=== PATIENT | female | born 1930 | race Caucasian/White ===

== ENCOUNTER 2016-09-19 21:01 | Emergency (ER) | payer OTHER ==
--- NOTE | 2016-09-19 21:24 | EDPHY ---
H & P Stated Complaint: rectal bleeding Time Seen by Provider: 09/19/16 21:11 HPI/ROS: CHIEF COMPLAINT: Rectal bleeding HISTORY OF PRESENT ILLNESS: Patient is an 86-year-old healthy female with a history of constipation and hemorrhoids who had a episode of hemorrhoidal bleeding earlier today. She then was at dinner with her friends and when she stood up from the chair at some bleeding through her pants onto the chair. Her friends were concerned and brought her here. She states that she is not concerned. She does not feel lightheaded or dizzy. She denies shortness of breath or chest pain. No weakness. Bleeding has now stopped. the blood was red. She has no abdominal pain. REVIEW OF SYSTEMS: Constitutional: denies: chills, fever, recent illness, recent injury EENTM: denies: blurred vision, double vision, nose congestion Respiratory: denies: cough, shortness of breath Cardiac: denies: chest pain, irregular heart rate, lightheadedness, palpitations Gastrointestinal/Abdominal: See HPI Genitourinary: denies: dysuria, frequency, hematuria, pain Musculoskeletal: denies: joint pain, muscle pain Skin: denies: lesions, rash, jaundice, bruising Neurological: denies: headache, numbness, paresthesia, tingling, dizziness, weakness Hematologic/Lymphatic: denies: blood clots, easy bleeding, easy bruising Immunologic/allergic: denies: HIV/AIDS, transplant EXAM: GENERAL: Well-appearing, well-nourished and in no acute distress. HEAD: Atraumatic, normocephalic. EYES: Pupils equal round and reactive to light, extraocular movements intact, sclera anicteric, conjunctiva are normal. ENT: TMs normal, nares patent, oropharynx clear without exudates. Moist mucous membranes. NECK: Normal range of motion, supple without lymphadenopathy or JVD. LUNGS: Breath sounds clear to auscultation bilaterally and equal. No wheezes rales or rhonchi. HEART: Regular rate and rhythm without murmurs, rubs or gallops. ABDOMEN: Soft, nontender, normoactive bowel sounds. No guarding, no rebound. No masses appreciated. : Rectal exam performed with proctoscope. Internal hemorrhoid seen at 9 o' clock. No active bleeding. Hemoccult negative BACK: No CVA tenderness, no spinal tenderness, step-offs or deformities EXTREMITIES: Normal range of motion, no pitting or edema. No clubbing or cyanosis. NEUROLOGICAL: Cranial nerves II through XII grossly intact. Normal speech, normal gait. 5/5 strength, normal movement in all extremities, normal sensation PSYCH: Normal mood, normal affect. SKIN: Warm, dry, normal turgor, no visible rashes or lesions. Source: Patient Exam Limitations: No limitations - Personal History Current Tetanus/Diphtheria Vaccine: Yes - Medical/Surgical History Hx Asthma: No Hx Chronic Respiratory Disease: No Hx Diabetes: No Hx Cardiac Disease: No Hx Renal Disease: No Hx Cirrhosis: No Hx Alcoholism: No Hx HIV/AIDS: No Hx Splenectomy or Spleen Trauma: No Other PMH: high chol,knee replacment - Family History Significant Family History: No pertinent family hx - Social History Smoking Status: Never smoked Alcohol Use: Sober Drug Use: None Constitutional: Initial Vital Signs Temperature (C) 36.3 C 09/19/16 21:03 Heart Rate 77 09/19/16 21:03 Respiratory Rate 18 09/19/16 21:03 Blood Pressure 131/70 H 09/19/16 21:03 O2 Sat (%) 96 09/19/16 21:03 O2 Delivery Mode Room Air Allergies/Adverse Reactions: acetaminophen [From Percocet] Allergy (Mild, Verified 05/09/09 18:54) Vomiting oxycodone HCl [From Percocet] Allergy (Mild, Verified 05/09/09 18:54) Vomiting ibuprofen Allergy (Verified 07/25/14 14:41) lisinopril Allergy (Verified 07/25/14 14:40) omeprazole Allergy (Verified 07/25/14 14:42) Home Medications: Medication Instructions Recorded SIMVASTATIN [Zocor] 05/09/09 Glycerin [Glycerin Adult Supp 1 each NJ BID #10 supp 07/25/14 (OTC)] Hydrocortisone Acetate [Anucort-Hc] 25 mg RC BID #20 supp.rect 09/19/16 Medical Decision Making ED Course/Re-evaluation: Patient has no bleeding currently. She has hemorrhoids that are not acute. I will check her hematocrit The patient is stable and has no complaints. We discussed her lab results. I will have her follow up with a surgeon. She is happy with this plan and declines further workup or testing. Her abdominal exam remains benign. Differential Diagnosis: Partial list of the Differential diagnosis considered include but were not limited to; rectal fissure, hemorrhoids, thrombosed hemorrhoid and although unlikely based on the history and physical exam, I also considered upper GI bleed, diverticulitis, ischemia, volvulus. I discussed these differential diagnoses and the plan with the patient as well as the usual and expected course. The patient understands that the diagnosis is provisional and that in medicine we are not always correct and that further workup is often warranted. Usual and customary warnings were given. All of the patient's questions were answered. The patient was instructed to return to the emergency department should the symptoms at all worsen or return, otherwise to followup with the physician as we discussed. - Data Points Medications Given: Discontinued Medications Hydrocortisone Acetate (Hemorrhoidal Hc) 25 mg NJ BID PRN PRN Reason: Pain, Moderate Stop: 03/18/17 21:58 Last Admin: 09/19/16 22:28 Dose: 25 mg Departure - Departure Disposition: Home, Routine, Self-Care Clinical Impression: Internal hemorrhoids Condition: Fair Instructions: Hemorrhoids (ED) Additional Instructions: Take MiraLax (polyethylene glycol) titrateas discussed Referrals: Natalia Cohen MD [Primary Care Provider] - As per Instructions Rivera Horan MD [Medical Doctor] - As per Instructions Prescriptions: Hydrocortisone Acetate [Anucort-Hc] 25 mg RC BID #20 supp.rect
[2016-09-19] MEDS ORDERED: HYDROCORTISONE ACETATE 25 MG SUPP PR PRN (21:59)
[2016-09-19 22:29] VITALS: BP 127/64; PULSE 67; RESP 20; TEMP 98.1; O2SAT 94
== END 2016-09-19 22:37 | disposition home or self-care (01) ==
DX: K64.8 Other hemorrhoids (principal)
CPT/HCPCS: 82947-QW

== ENCOUNTER → 2016-09-29 | Outpatient (CLI) | payer OTHER | LOC: FIMAGING 07:35 | PROVIDERS: ATTEND Radiology Diagnostic Radiology | DX: Z01.818 Encounter for other preprocedural examination (principal); I83.893 Varicose veins of bilateral lower extremities with other complications ==

== ENCOUNTER 2016-12-14 07:39 | Day surgery (SDC) | payer OTHER ==
[~2016-12-14 07:39] MED LIST: NS 1,000 ML IV ONE; ONDANSETRON 4 MG/2 ML VIAL IVP ONE; ceFAZolin 2 GM/DEXTROSE 100 ML IV ONE
[2016-12-14] MEDS ORDERED: SODIUM TETRADECYL SULFATE 3% 2 ML VIAL IV ONE (08:10)
[2016-12-14] MEDS ORDERED: LIDO/EPI 1% **for epidural** 30 ML SDV ONE (08:10)
[2016-12-14] MEDS ORDERED: fentaNYL 100 MCG/2 ML INJ ONE (09:09)
[2016-12-14] MEDS ORDERED: MIDAZOLAM 2 MG/2 ML VIAL ONE (09:10)
[2016-12-14 12:24] VITALS: O2SAT 93
== END 2016-12-14 12:40 | disposition home or self-care, planned readmission (81) ==
LOC: FIMAGING 07:39
PROVIDERS: ATTEND Radiology Diagnostic Radiology
PROC: 3E033TZ Introduction of Destructive Agent into Peripheral Vein, Percutaneous Approach (ICD-10-PCS; principal; 2016-12-14 10:42)
PROC: 06LQ3ZZ Occlusion of Left Saphenous Vein, Percutaneous Approach (ICD-10-PCS; principal; 2016-12-14 10:42)
PROC: [UNRECOGNIZED PROCEDURE] (principal; 2016-12-14 10:42)
DX: I83.893 Varicose veins of bilateral lower extremities with other complications (principal)
CPT/HCPCS: J0690; J2250; J3010

== ENCOUNTER 2016-12-18 07:40 | Day surgery (SDC) | payer OTHER ==
[2016-12-18] MEDS ORDERED: LIDO/EPI 1% **for epidural** 30 ML SDV ONE (07:56)
[2016-12-18] MEDS ORDERED: SODIUM TETRADECYL SULFATE 3% 2 ML VIAL IV ONE (07:56)
[2016-12-18] MEDS ORDERED: ONDANSETRON 4 MG/2 ML VIAL IVP ONE (07:59)
[2016-12-18] MEDS ORDERED: ceFAZolin 2 GM/DEXTROSE 100 ML IV ONE (07:59)
[2016-12-18] MEDS ORDERED: NS 1,000 ML IV ONE (07:59)
[2016-12-18] MEDS ORDERED: MIDAZOLAM 2 MG/2 ML VIAL ONE ×2 (08:54→08:55)
[2016-12-18] MEDS ORDERED: fentaNYL 100 MCG/2 ML INJ ONE (08:55)
[2016-12-18] MEDS ORDERED: FLUMAZENIL 0.5 MG/5 ML MDV IVP ONE (08:56)
[2016-12-18] MEDS ORDERED: NALOXONE HCL 0.4 MG/ML INJ ONE (08:56)
[2016-12-18] MEDS ORDERED: IOPAMIDOL (ISOVUE-300) 100 ML BTL ONE (12:34)
[2016-12-18 13:34] VITALS: BP 118/58; RESP 16; O2SAT 96
[2016-12-18 13:36] VITALS: TEMP 97.9
== END 2016-12-18 13:40 | disposition home or self-care (01) ==
LOC: FIMAGING 07:40
PROVIDERS: ATTEND Radiology Diagnostic Radiology
PROC: B51B1ZA Fluoroscopy of Right Lower Extremity Veins using Low Osmolar Contrast, Guidance (ICD-10-PCS; principal; 2016-12-18 11:40)
DX: I83.893 Varicose veins of bilateral lower extremities with other complications (principal); S80.812A Abrasion, left lower leg, initial encounter; X58.XXXA Exposure to other specified factors, initial encounter
CPT/HCPCS: 12001; 36471; 75820; 99152; 99153; C1769; J0690; J2250; J2310; J2405; J3010; Q9967

== ENCOUNTER → 2016-12-30 | Outpatient (CLI) | payer OTHER | LOC: BHFA 16:00 | PROVIDERS: ATTEND Internal Medicine Cardiovascular Disease | DX: R55 Syncope and collapse (principal) ==

== ENCOUNTER → 2017-01-01 | Outpatient (CLI) | payer OTHER | LOC: BHFA 14:30 | PROVIDERS: ATTEND Internal Medicine | DX: R55 Syncope and collapse (principal) ==

== ENCOUNTER → 2017-03-15 | Day surgery (SDC) | payer OTHER ==
[~2017-03-15] MED LIST changes: +ALTEPLASE 2 MG VIAL IVP PRN; +FLUMAZENIL 0.5 MG/5 ML MDV IVP PRN; +GLUCAGON HCL 1 MG VIAL IVP PRN; +HEPARIN 10,000 UNIT/10 ML MDV IVP PRN; +HYDROCODONE/APAP 5/325 TAB PO PRN; +LIDO/EPI 1% **for epidural** 30 ML SDV ONE; +MEPERIDINE 25 MG/ML SYR IVP PRN; +MIDAZOLAM 2 MG/2 ML VIAL IVP PRN; +MIDAZOLAM 2 MG/2 ML VIAL ONE; +NALOXONE HCL 0.4 MG/ML INJ IVP PRN; +NS 1,000 ML IV SCH; +PROTAMINE SULFATE 50 MG/5 ML VIAL IVP PRN; +SODIUM TETRADECYL SULFATE 3% 2 ML VIAL IV ONE; -ceFAZolin 2 GM/DEXTROSE 100 ML IV ONE; +ceFAZolin 2 GM/SWFI 2 GM/20 ML SYR IVP ONE; +fentaNYL 100 MCG/2 ML INJ IVP PRN; +fentaNYL 100 MCG/2 ML INJ ONE
[2017-03-15 08:44] VITALS: PULSE 66; RESP 19; TEMP 98
--- NOTE | 2017-03-15 09:50 | PDPROPOC ---
Sedation Plan of Care Sedation Plan of Care: vital signs stable, mental status noted, patient educated of risks, benefits, alternatives, patient can tolerate sedation ASA Classification: ASA 2 Planned drugs: fentanyl, midazolam Mallampati Score: Class 1 Mallampati Reference Image: Patient passed 3-3-2 rule?: Yes
--- NOTE | 2017-03-15 09:52 | PDGENHP ---
History & Physical Chief Complaint: RESIDUAL RT LEG VARICOSE VEINS History of Present Illness: HAS HAD BILATERAL SCLEROTHERAPY. LT LASER. COULD NOT COMPLETE RT LASER. HERE FOR COMPLETION OF RT LEG TRETEMENT WITH ADDITIONAL SCLEROTHERAPY AND PHLEBECTOMY. Pertinent Past, Social, Family History: N/A Relevant Physical Exam: ROPEY RT VARICOSE VEINS. PATIENT BRUISES VERY EASILY. THERE ARE LARGE AREAS OF BRUISIN AND PURPLE SKIN TO BOTH LEGS. Cardiorespiratory Assessment: CTA, RRR
[2017-03-15 12:27] VITALS: O2SAT 98
--- NOTE | 2017-03-15 12:31 | PDRADPN ---
Radiology Procedure Note Date of Procedure: 03/15/17 Radiologist: Deyanira Mcadams Anesthesia: IV Sedation (fentanyl and versed) Pre-op Diagnosis: RLE varicose veins Post-op Diagnosis: same Indication: persistant symptoms Procedure: phlebectomy, schlerotherapy. Finding(s): see report Inf/Abcess present in the surg proc area at time of surgery?: No EBL: Minimal Complications: None
[2017-03-15 14:30] VITALS: BP 138/81
== END | disposition home or self-care (01) ==
LOC: FIMAGING 08:05
PROVIDERS: ATTEND Radiology Diagnostic Radiology
PROC: 3E033TZ Introduction of Destructive Agent into Peripheral Vein, Percutaneous Approach (ICD-10-PCS; principal; 2017-03-15 11:02)
PROC: 06DY3ZZ Extraction of Lower Vein, Percutaneous Approach (ICD-10-PCS; principal; 2017-03-15 11:02)
DX: I83.891 Varicose veins of right lower extremity with other complications (principal)
CPT/HCPCS: J0690; J2250; J2310; J3010

== ENCOUNTER → 2017-04-21 | Outpatient (CLI) | payer OTHER | LOC: FLAB 15:11 | PROVIDERS: ATTEND Radiology Diagnostic Radiology | DX: I83.893 Varicose veins of bilateral lower extremities with other complications (principal) ==

== ENCOUNTER 2017-05-14 08:00 | Day surgery (SDC) | payer OTHER ==
[2017-05-14] MEDS ORDERED: SODIUM TETRADECYL SULFATE 3% 2 ML VIAL IV ONE (08:21)
[2017-05-14] MEDS ORDERED: LIDO/EPI 1% **for epidural** 30 ML SDV ONE (08:22)
[2017-05-14] MEDS ORDERED: GLUCAGON HCL 1 MG VIAL IVP PRN (08:31)
[2017-05-14] MEDS ORDERED: FLUMAZENIL 0.5 MG/5 ML MDV IVP PRN (08:31)
[2017-05-14] MEDS ORDERED: MEPERIDINE 25 MG/ML SYR IVP PRN (08:31)
[2017-05-14] MEDS ORDERED: fentaNYL 100 MCG/2 ML INJ IVP PRN (08:31)
[2017-05-14] MEDS ORDERED: NALOXONE HCL 0.4 MG/ML INJ IVP PRN (08:31)
[2017-05-14] MEDS ORDERED: MIDAZOLAM 2 MG/2 ML VIAL IVP PRN (08:31)
[2017-05-14] MEDS ORDERED: ceFAZolin 2 GM/SWFI 2 GM/20 ML SYR IVP ONE (08:31)
[2017-05-14] MEDS ORDERED: ALTEPLASE 2 MG VIAL IVP PRN (08:31)
[2017-05-14] MEDS ORDERED: NS 1,000 ML IV ONE (08:31)
[2017-05-14] MEDS ORDERED: PROTAMINE SULFATE 50 MG/5 ML VIAL IVP PRN (08:31)
[2017-05-14] MEDS ORDERED: HEPARIN 10,000 UNIT/10 ML MDV (1,000 UNIT/ML) IVP PRN (08:31)
[2017-05-14] MEDS ORDERED: ONDANSETRON 4 MG/2 ML VIAL IVP ONE (08:31)
--- NOTE | 2017-05-14 10:36 | PDRADPN ---
Radiology Procedure Note Date of Procedure: 05/14/17 Radiologist: Deyanira Mcadams Anesthesia: IV Sedation Pre-op Diagnosis: bilateral varicosities Post-op Diagnosis: same Indication: persistant swelling Procedure: bilateral schlerotherapy Finding(s): see report Inf/Abcess present in the surg proc area at time of surgery?: No Complications: none
--- NOTE | 2017-05-14 10:40 | PDGENHP ---
History & Physical Chief Complaint: bilateral swelling History of Present Illness: s/p previous treatments; persistant symtoms; refluxing varicosities bilaterally posteriorly. Pertinent Past, Social, Family History: n/a Relevant Physical Exam: some persistant areas of trapped blood in rt calf. Cardiorespiratory Assessment: rrr. cta
[2017-05-14 10:42] VITALS: PULSE 54; RESP 12
[2017-05-14] MEDS ORDERED: NS 1,000 ML IV SCH (10:45)
[2017-05-14 11:59] VITALS: TEMP 98.1
[2017-05-14 12:00] VITALS: BP 134/69; O2SAT 92
== END 2017-05-14 11:58 | disposition home or self-care (01) ==
LOC: FIMAGING 08:00
PROVIDERS: ATTEND Radiology Diagnostic Radiology
PROC: 3E033TZ Introduction of Destructive Agent into Peripheral Vein, Percutaneous Approach (ICD-10-PCS; principal; 2017-05-14 10:26)
DX: I83.893 Varicose veins of bilateral lower extremities with other complications (principal)
CPT/HCPCS: J0690; J2250; J2310; J3010

== ENCOUNTER → 2017-07-12 | Outpatient (CLI) | payer OTHER | LOC: FIMAGING 12:46 | PROVIDERS: ATTEND Radiology Diagnostic Radiology | DX: Z09 Encounter for follow-up examination after completed treatment for conditions other than malignant neoplasm (principal); I83.893 Varicose veins of bilateral lower extremities with other complications ==

== ENCOUNTER → 2017-12-02 | Outpatient (CLI) | payer OTHER | LOC: FIMAGING 08:09 | PROVIDERS: ATTEND Internal Medicine | DX: Z13.820 Encounter for screening for osteoporosis (principal); M85.831 Other specified disorders of bone density and structure, right forearm; Z79.899 Other long term (current) drug therapy; I65.23 Occlusion and stenosis of bilateral carotid arteries ==

== ENCOUNTER → 2017-12-20 | Outpatient (CLI) | payer OTHER | LOC: FIMAGING 09:55 | PROVIDERS: ATTEND Internal Medicine | DX: R51 Headache (principal) ==

== ENCOUNTER → 2018-01-07 | Outpatient (CLI) | payer OTHER | LOC: FIMAGING 10:01 | PROVIDERS: ATTEND Internal Medicine | DX: M85.80 Other specified disorders of bone density and structure, unspecified site (principal) | CPT/HCPCS: 78306; A9503 ==

== ENCOUNTER → 2018-01-27 | Day surgery (SDC) | payer OTHER ==
[~2018-01-27] MED LIST changes: -ALTEPLASE 2 MG VIAL IVP PRN; -FLUMAZENIL 0.5 MG/5 ML MDV IVP PRN; -GLUCAGON HCL 1 MG VIAL IVP PRN; -HEPARIN 10,000 UNIT/10 ML MDV IVP PRN; -HYDROCODONE/APAP 5/325 TAB PO PRN; -LIDO/EPI 1% **for epidural** 30 ML SDV ONE; -MEPERIDINE 25 MG/ML SYR IVP PRN; -MIDAZOLAM 2 MG/2 ML VIAL IVP PRN; -MIDAZOLAM 2 MG/2 ML VIAL ONE; -NALOXONE HCL 0.4 MG/ML INJ IVP PRN; -NS 1,000 ML IV ONE; -NS 1,000 ML IV SCH; -ONDANSETRON 4 MG/2 ML VIAL IVP ONE; -PROTAMINE SULFATE 50 MG/5 ML VIAL IVP PRN; -ceFAZolin 2 GM/SWFI 2 GM/20 ML SYR IVP ONE; -fentaNYL 100 MCG/2 ML INJ IVP PRN; -fentaNYL 100 MCG/2 ML INJ ONE
== END | disposition home or self-care (01) ==
LOC: FIMAGING 14:05
PROVIDERS: ATTEND Radiology Diagnostic Radiology
PROC: 3E033TZ Introduction of Destructive Agent into Peripheral Vein, Percutaneous Approach (ICD-10-PCS; principal; 2018-01-27)
DX: I83.812 Varicose veins of left lower extremity with pain (principal); R22.42 Localized swelling, mass and lump, left lower limb

== ENCOUNTER → 2018-03-11 | Outpatient (CLI) | payer OTHER | LOC: FIMAGING 15:02 | PROVIDERS: ATTEND Internal Medicine | DX: M11.252 Other chondrocalcinosis, left hip (principal); M11.251 Other chondrocalcinosis, right hip; M51.36 Other intervertebral disc degeneration, lumbar region; M46.97 Unspecified inflammatory spondylopathy, lumbosacral region; I70.0 Atherosclerosis of aorta ==

== ENCOUNTER → 2018-03-15 | Outpatient (CLI) | payer OTHER | LOC: FIMAGING 10:08 | PROVIDERS: ATTEND Internal Medicine | DX: I71.4 Abdominal aortic aneurysm, without rupture (principal) ==

== ENCOUNTER → 2018-03-17 | Outpatient (CLI) | payer OTHER | LOC: FIMAGING 18:59 | PROVIDERS: ATTEND Internal Medicine | DX: M16.0 Bilateral primary osteoarthritis of hip (principal); M51.37 Other intervertebral disc degeneration, lumbosacral region ==

== ENCOUNTER 2018-04-15 07:49 | Emergency (ER) | payer OTHER ==
--- NOTE | 2018-04-15 08:27 | EDPHY ---
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 After the discontinuation of her lisinopril she was not started on another antihypertensive and, per her report, has not had high blood pressure until the last few weeks. She states that she was seen by a neurologist a couple of weeks ago because of headache (presumably related to 2 mechanical falls) and at that time had a systolic pressure 155. She has a home blood pressure cuff and yesterday had a systolic pressure of 165, this morning a blood pressure of 176/100 with a heart rate of 72. She is not currently experiencing headache. She denies chest pain or shortness of breath. She has had no confusion, visual changes, new numbness, or new weakness. She is here in the urging of a friend who is concerned about her recent hypertension. Both of them feel that her elevated blood pressure might be related to the fact that her is doing poorly. Her has Lewy body dementia and lives in assisted living at [facility]. He has a diarrheal illness. REVIEW OF SYSTEMS: A ten system review of systems was performed and is negative with the exception of the items mentioned in the HPI. She sustained a wound on the left tibia when she fell trying to catch her . This wound is being followed at wound care clinic. The wound has been improving. Past medical history: Remote history of hypertension, hyperlipidemia Past surgical history: Left knee replacement Social history: She lives on her own. She leads an active life. Her resides at [facility] in assisted living. She drinks 1 glass of wine daily. No tobacco products. General Appearance: Alert. Vital signs reviewed. Blood pressure 175/90 at triage. Eyes: Pupils equal and round, no conjunctival injection, no discharge. Anicteric. ENT, Mouth: Mucous membranes are moist, no oropharyngeal erythema or edema. Neck: No lymphadenopathy, supple. Respiratory: Lungs are clear to auscultation; no wheezes, rales, or rhonchi. Cardiovascular: Regular rate and rhythm; no murmur, rub, or gallop. Gastrointestinal: Abdomen is soft and nontender, no masses or organomegaly, bowel sounds normal. Skin: Warm and dry, no rashes on exposed skin, normal color. Back: Nontender to palpation over the thoracolumbar spine. No CVAT. Extremities: Dressing in place over the mid anterior tibia on the left. Mild erythema seen at the edges of the dressing, no warmth. Neurological: Alert and oriented. Moving all four extremities easily and equally. Cranial nerves II through XII are examined and are intact (visual acuity not tested). Strength is 5 over 5 bilaterally with testing of all major motor groups. Sensation is intact to light touch over all 4 extremities. Gait is normal. Psychiatric: Normal affect. - Personal History Current Tetanus/Diphtheria Vaccine: Yes Current Tetanus Diphtheria and Acellular Pertussis (TDAP): Yes - Medical/Surgical History Hx Asthma: No Hx Chronic Respiratory Disease: No Hx Diabetes: No Hx Cardiac Disease: No Hx Renal Disease: No Hx Cirrhosis: No Hx Alcoholism: No Hx HIV/AIDS: No Hx Splenectomy or Spleen Trauma: No Other PMH: high chol,knee replacment, HTN - Social History Smoking Status: Never smoked Constitutional: Initial Vital Signs Temperature (C) 36.5 C 04/15/18 07:55 Heart Rate 78 04/15/18 07:55 Respiratory Rate 16 04/15/18 07:55 Blood Pressure 175/90 H 04/15/18 07:55 O2 Sat (%) 96 04/15/18 07:55 O2 Delivery Mode Room Air Allergies/Adverse Reactions: oxycodone HCl [From Percocet] Allergy (Mild, Verified 04/15/18 07:54) Vomiting ibuprofen Allergy (Verified 04/15/18 07:54) lisinopril Allergy (Verified 04/15/18 07:54) omeprazole Allergy (Verified 04/15/18 07:54) Home Medications: Medication Instructions Recorded Docusate Sodium PO DAILY PRN 12/09/16 Latanoprost 0.005% 1 drop EACHEYE HS 12/09/16 Multivitamin 1 tab PO DAILY 12/09/16 Preservision Areds Softgel 1 tab PO BID 12/09/16 Tylenol PO PRN 12/09/16 Vitamin B Complex 1 tab PO DAILY 12/09/16 Vitamin B12 PO DAILY 12/09/16 Vitamin D3 1,000 units PO DAILY 12/09/16 Citalopram 5 mg PO DAILY 05/11/17 Magnesium PO DAILY 05/11/17 Ranitidine HCl DAILY 05/11/17 Sucralfate 05/11/17 Medical Decision Making - Diagnostics EKG Interpretation: 12 lead EKG is interpreted in [place] by emergency department physician. ED Course/Re-evaluation: 87-year-old female concerned about recent hypertension. Initial blood pressure 175/90. Repeat blood pressures were 159/86 and 155/87. No evidence of end- organ damage. I have reviewed blood work and EKG. No acute ischemic changes on EKG. I spoke with patient's primary care provider, Dr. Cohen, with whom she has an appointment later today. We agreed that the patient will be given a small dose of Norvasc, 2.5 mg, in the emergency department. Patient has had problems with lisinopril in the past. She has also had problems with hyponatremia, making the choice of an antihypertensive medication a bit more difficult. Patient is comfortable with today's evaluation and will keep her appointment with her PCP today. Differential Diagnosis: I considered a differential diagnosis of hypertension that includes but is not limited to stress, kidney disease, tobacco abuse, excess sodium/poor diet, advancing age sleep apnea, obesity, lack of exercise, and stimulants. - Data Points Laboratory Results: Laboratory Results 04/15/18 08:05 04/15/18 08:05 Medications Given: Discontinued Medications Amlodipine Besylate (Norvasc) 2.5 mg PO EDNOW ONE Stop: 04/15/18 09:15 Last Admin: 04/15/18 09:29 Dose: 2.5 mg Point of Care Test Results: Chemistry 04/15/18 08:33 POC Troponin I 0.01 ng/mL ng/mL (0.00-0.08) Departure - Departure Disposition: Home, Routine, Self-Care Clinical Impression: Hypertension Qualifiers: Hypertension type: unspecified Qualified Code(s): I10 - Essential (primary) hypertension Condition: Good Instructions: Hypertension (ED) Additional Instructions: He was given a dose of Norvasc 2.5 mg in the emergency department. This will not work right away. Dr. Cohen will check your blood pressure again today and will write you a prescription if needed. Be sure that you keep your appointment with Dr. Cohen. Referrals: Natalia Cohen MD [Primary Care Provider] - As per Instructions
[2018-04-15 08:40] LABS: PLATELET COUNT 320 10^3/uL (150-400)
[2018-04-15] MEDS ORDERED: amLODIPine BESYLATE 5 MG TAB PO ONE (09:14)
[2018-04-15 09:41] VITALS: BP 155/87
--- NOTE | 2018-04-15 16:37 | CPEKG ---
Test Reason : OPEN Blood Pressure : / mmHG Vent. Rate : 057 BPM Atrial Rate : 071 BPM P-R Int : 170 ms QRS Dur : 080 ms QT Int : 430 ms P-R-T Axes : 062 019 071 degrees QTc Int : 419 ms Sinus arrhythmia Probable left atrial enlargement Anteroseptal infarct, age indeterminate Confirmed by Emmy Hilton ([id number]) on 04/15/2018 4:37:11 PM Referred By: Confirmed By:Emmy Hilton
== END 2018-04-15 09:40 | disposition home or self-care (01) ==
DX: I10 Essential (primary) hypertension (principal); E78.5 Hyperlipidemia, unspecified
CPT/HCPCS: 84484-ER

== ENCOUNTER → 2018-04-20 | Outpatient (CLI) | payer OTHER | LOC: FIMAGING 14:33 | PROVIDERS: ATTEND Internal Medicine | DX: Z12.31 Encounter for screening mammogram for malignant neoplasm of breast (principal) ==